=== PATIENT | male | born 2000 ===

== ENCOUNTER 2025-03-24 13:38 | Emergency (ER) | payer SELFPAY ==
--- NOTE | 2025-03-24 14:02 | EDPHYS ---
Physician Documentation [facility] Name: Jax Cohn Age: 25 yrs Sex: Male : 2000 Arrival Date: 03/24/2025 Time: 13:38 Bed 23 Private MD: ED Physician Kaden Shah HPI: 03/24 13:55 This 25 yrs old Black Male presents to ER via Unassigned with complaints of HEARING torri VOICES , SUICIDAL. 13:55 The patient presents to the emergency department with paranoia, suicide ideation. torri Onset: The symptoms/episode began/occurred 3 day(s) ago. Past psychiatric history: Prior diagnosis: depression, schizophrenia, Psychiatric medications include: SEE LIST. Associated signs and symptoms: The patient has no apparent associated signs or symptoms. Severity of symptoms: At their worst the symptoms were moderate in the emergency department the symptoms are unchanged. The patient has experienced similar episodes in the past, multiple times. Historical: - Allergies: 14:30 No Known Allergies; iw - Home Meds: 14:50 nicotine gum 1 piece every hour as needed [Active]; hydroxyzine HCl 25 mg Oral tablet 3 iw times per day [Active]; mirtazapine 15 mg Oral tablet nightly [Active]; amlodipine 10 mg tablet daily [Active]; losartan 25 mg oral tablet daily [Active]; fluticasone propionate 50 mcg/actuation intranasal spray, suspension daily [Active]; naltrexone 50 mg oral tablet twice a day [Active]; qysqselej-hzzemoty-iogdhsr ala 50-200-25 mg oral tablet daily [Active]; famotidine 20 mg Oral tablet 2 times per day [Active]; quetiapine 400 mg oral tablet nightly [Active]; - PMHx: 14:30 HIV positive; Hypertensive disorder; Bipolar disorder; Anxiety; Depressive disorder; iw - Immunization history:: Adult Immunizations up to date. - Infectious Disease History:: Denies. - Family history:: not pertinent. - Social history:: Smoking status: Patient reports the use of cigarette tobacco products, smokes one pack cigarettes per day. ROS: 13:56 Constitutional: Negative for fever, chills, and weight loss, Eyes: Negative for injury, torri pain, redness, and discharge, ENT: Negative for injury, pain, and discharge, Neck: Negative for injury, pain, and swelling, Cardiovascular: Negative for chest pain, palpitations, and edema, Respiratory: Negative for shortness of breath, cough, wheezing, and pleuritic chest pain, Abdomen/GI: Negative for abdominal pain, nausea, vomiting, diarrhea, and constipation, Back: Negative for injury and pain, : Negative for injury, bleeding, discharge, and swelling, MS/Extremity: Negative for injury and deformity, Skin: Negative for injury, rash, and discoloration, Neuro: Negative for headache, weakness, numbness, tingling, and seizure, Allergy/Immunology: Negative for hives, rash, and allergies, Endocrine: Negative for neck swelling, polydipsia, polyuria, polyphagia, and marked weight changes, Hematologic/Lymphatic: Negative for swollen nodes, abnormal bleeding, and unusual bruising, 13:56 MS/extremity: Negative for acute changes, 13:56 Psych: Positive for anxiety, depression, auditory hallucinations, suicidal ideation, Exam: 13:56 Constitutional: This is a well developed, well nourished patient who is awake, alert, torri and in no acute distress. Head/Face: Normocephalic, atraumatic. Eyes: Pupils equal round and reactive to light, extra-ocular motions intact. Lids and lashes normal. Conjunctiva and sclera are non-icteric and not injected. Cornea within normal limits. Periorbital areas with no swelling, redness, or edema. ENT: Nares patent. No nasal discharge, no septal abnormalities noted. Tympanic membranes are normal and external auditory canals are clear. Oropharynx with no redness, swelling, or masses, exudates, or evidence of obstruction, uvula midline. Mucous membranes moist. Neck: Trachea midline, no thyromegaly or masses palpated, and no cervical lymphadenopathy. Supple, full range of motion without nuchal rigidity, or vertebral point tenderness. No Meningismus. Chest/axilla: Normal chest wall appearance and motion. Nontender with no deformity. No lesions are appreciated. Cardiovascular: Regular rate and rhythm with a normal S1 and S2. No gallops, murmurs, or rubs. Normal PMI, no JVD. No pulse deficits. Respiratory: Lungs have equal breath sounds bilaterally, clear to auscultation and percussion. No rales, rhonchi or wheezes noted. No increased work of breathing, no retractions or nasal flaring. Abdomen/GI: Soft, non-tender, with normal bowel sounds. No distension or tympany. No guarding or rebound. No evidence of tenderness throughout. Back: No spinal tenderness. No costovertebral tenderness. Full range of motion. Male : Normal genitalia with no discharge or lesions. Skin: Warm, dry with normal turgor. Normal color with no rashes, no lesions, and no evidence of cellulitis. MS/ Extremity: Pulses equal, no cyanosis. Neurovascular intact. Full, normal range of motion., bilateral aka Neuro: Awake and alert, GCS 15, oriented to person, place, time, and situation. Cranial nerves II-XII grossly intact. Motor strength 5/5 in all extremities. Sensory grossly intact. Cerebellar exam normal. Normal gait. Psych: Awake, alert, with orientation to person, place and time. Behavior, mood, and affect are within normal limits. 13:56 ECG was reviewed by the Attending Physician. 13:56 Musculoskeletal/extremity: DVT Exam: No signs of deep vein thrombosis. no pain, no swelling, no tenderness, negative Homans' sign noted on exam, no appreciated bluish discoloration, no erythema, no increased warmth, 13:56 Neuro: Orientation: appropriate for stated age, no acute changes, to person, place \T\ time. Mentation: appropriate for stated age, no acute changes, responsive to voice lucid, able to follow commands, Memory: immediate memory is intact, remote memory is intact. recent memory is intact, Cranial nerves: grossly normal, is grossly normal based on the patient's age, no acute changes, visual nichols are intact. extraocular movements are intact, Facial palsy and sensory deficits are absent. Motor: Sensation: is normal, Gait: is steady, appropriate for age, Deep tendon reflexes are 2+ (normal) in the bilateral brachioradialis, bicep, tricep and patellar and Achilles tendons, Babinski testing is normal, Vital Signs: 13:38 BP 146 / 79; Pulse 84; Resp 16; Temp 98.1; Pulse Ox 99% on R/A; Weight 79.38 kg; Height iw 5 ft. 11 in. ; Pain 0/10; 19:42 BP 137 / 92; Pulse 80; Resp 17; Pulse Ox 97% on R/A; Weight 97.07 kg; Height 5 ft. 11 tb4 in. ; Pain 0/10; 03/25 12:59 BP 146 / 78; Pulse 92; Resp 16; Pulse Ox 97% ; bc6 19:35 BP 148 / 89; Pulse 83; Resp 16; Pulse Ox 97% ; ts3 20:51 BP 127 / 84; Pulse 84; Resp 16; Pulse Ox 96% ; ts3 21:33 BP 129 / 85; Pulse 74; Resp 16; Pulse Ox 95% ; ts3 03/26 08:11 BP 136 / 91; Pulse 85; Resp 18; Temp 97.4; Pulse Ox 98% on R/A; af3 14:21 BP 130 / 81; Pulse 77; Resp 18; Pulse Ox 100% ; ts3 19:33 BP 134 / 76; Pulse 88; Resp 20; Temp 97.5; Pulse Ox 99% on R/A; Pain 0/10; tb4 03/27 06:26 BP 134 / 73; Pulse 72; Resp 17; Pulse Ox 99% on R/A; Pain 0/10; tb4 09:00 BP 135 / 71; Pulse 70; Resp 16; Temp 97.5(O); Pulse Ox 99% on R/A; jp5 14:00 BP 130 / 68; Pulse 70; Resp 16; Temp 97.8(O); Pulse Ox 99% on R/A; Pain 0/10; jp5 19:30 BP 126 / 86; Pulse 81; Resp 17; Pulse Ox 97% on R/A; Pain 0/10; tb4 03/28 08:15 BP 115 / 82; Pulse 83; Resp 16; Temp 98; Pulse Ox 98% on R/A; iw 13:02 BP 127 / 70; Pulse 83; Resp 16; Temp 98.1; Pulse Ox 100% on R/A; rk3 03/24 19:42 Body Mass Index 29.85 (97.07 kg, 180.34 cm) tb4 03/24 13:38 Pain Scale: Adult iw 19:42 Pain Scale: Adult tb4 19:33 Pain Scale: Adult tb4 03/27 06:26 Pain Scale: Adult tb4 14:00 Pain Scale: Adult jp5 19:30 Pain Scale: Adult tb4 NIH Stroke Scale Scores: 03/24 13:56 NIHSS Score: 0 torri MDM: 13:46 Medical Screening Exam initiated torri 14:57 Differential diagnosis: drug withdrawal. acute psychotic break, depression, psychosis torri secondary to non-compliance. Differential Diagnosis altered mental status, sepsis, flu. Data reviewed: vital signs, nurses notes, lab test result(s), EKG. Consideration of Admission/Observation Escalation of care including admission/observation considered. I considered the following discharge prescriptions or medication management in the emergency department Medications were administered in the Emergency Department. See MAR. Independent interpretation of the following test(s) in the Emergency Department EKG: See my EKG interpretation above. Test considered but Not performed: CT: NO CT BRAIN. Care significantly affected by the following chronic conditions: Hypertension, Obesity, HIV, BIPOLAR, DEPRESSION. 03/24 13:47 Order name: Acetaminophen; Complete Time: 16:02 [facility] 03/24 13:47 Order name: Basic Metabolic Panel; Complete Time: 16:02 torri 03/24 13:47 Order name: CBC with Diff; Complete Time: 16:02 torri 03/24 13:47 Order name: ETOH Level; Complete Time: 16:02 torri 03/24 13:47 Order name: Hepatic Function; Complete Time: 16:02 torri 03/24 13:47 Order name: PT-INR; Complete Time: 16:02 torri 03/24 13:47 Order name: Ptt, Activated; Complete Time: 16:02 [facility] 03/24 13:47 Order name: Salicylate; Complete Time: 20:04 torri 03/24 13:47 Order name: Urine Drug Screen; Complete Time: 16:02 torri 03/24 13:47 Order name: EKG - Nurse/Tech; Complete Time: 14:54 torri 03/24 13:47 Order name: IV Saline Lock; Complete Time: 14:54 [facility] 03/24 13:47 Order name: Labs collected and sent; Complete Time: 14:54 torri 03/24 13:47 Order name: Suicide Screening ([place]); Complete Time: 15:02 torri 03/24 13:47 Order name: Suicide Precautions; Complete Time: 15:03 [facility] Administered Medications: 15:02 Drug: Ativan IVP 2 mg IVP once Route: IVP; Site: left hand; me1 16:40 Follow up: Response: No adverse reaction; Anxiety decreased me1 15:02 Drug: NS 0.9% IV 1000 ml IV at 1000 ml once; to be given as a bolus over 60 minutes me1 Route: IV; Rate: 1000 ml; Site: left hand; 16:41 Follow up: Response: No adverse reaction; IV Status: Completed infusion; IV Intake: me1 1000ml 15:03 Not Given (patient is cooperative at this timee): mg IM once me1 22:11 Drug: SEROquel PO 400 mg PO once Route: PO; tb4 23:39 Follow up: Response: No adverse reaction tb4 22:11 Drug: Diazepam PO 5 mg PO once Route: PO; tb4 23:39 Follow up: Response: No adverse reaction; Anxiety decreased tb4 22:13 Not Given (Patient Refused; Patient states it will give him nightmares so he can only tb4 use it in the day time.): nicotinepatch 21 mg/24 hr 1 patches Transdermal once 03/25 14:55 Drug: Nicotine Transdermal Patch 21 mg/24 hr 1 patches Transdermal once {Note: applied ar8 to Left upper arm.} Route: Transdermal; Site: affected area; 16:48 Follow up: Response: No adverse reaction ar8 19:30 Drug: Promethazine PO 50 mg PO once Route: PO; cp4 20:53 Follow up: Response: No adverse reaction cp4 21:46 Drug: SEROquel PO 400 mg PO once Route: PO; cp4 22:05 Follow up: Response: No adverse reaction cp4 03/27 00:32 Drug: SEROquel PO 400 mg PO once Route: PO; tb4 01:00 Follow up: Response: No adverse reaction; RASS: Drowsy (-1) tb4 03/28 00:26 Drug: SEROquel PO 400 mg PO once Route: PO; vc1 Disposition Summary: 03/24/25 14:02 Transfer Ordered Notes: Transfer Location: Psych Facility torri Reason: Higher level of care torri Condition: Stable torri Problem: new torri Symptoms: have improved torri Accepting Physician: TO PSYCH (03/28/25 13:03) iw Diagnosis - Schizoaffective disorder, unspecified torri - Schizophrenia, unspecified torri - Suicidal ideations torri - Asymptomatic human immunodeficiency virus [HIV] infection status torri Forms: - Medication Reconciliation Form torri - SBAR form torri NIH Stroke Scale - NIH Stroke Score Date: 03/24/2025 Time: 13:56 Total Score = 0 10. Dysarthria (speech clarity - read or repeat words) - 0(Normal) 11. Extinction and Inattention (visual/tactile/auditory/spatial/personal) - 0(No abnormality) 1a. Level of Consciousness (LOC) - 0(Alert) 1b. Level of Consciousness (LOC) (Month \T\ Age) - 0(Both) 1c. LOC Commands (Open \T\ Closes Eyes/Stamp Maker) - 0(Both) 2. Best Gaze (Lateral Gaze Paresis) - 0(Normal) 3. Visual Field Loss - 0(No visual loss) 4. Facial Palsy - 0(Normal) 5a. Left Arm: Motor (10-second hold) - 0(No drift) 5b. Right Arm: Motor (10-second hold) - 0(No drift) 6a. Left Leg: Motor (5-second hold - always test supine) - 0(No drift) 6b. Right Leg: Motor (5-second hold - always test supine) - 0(No drift) 7. Limb Ataxia (finger/nose \T\ heel/stewart - test with eyes open) - 0(Absent) 8. Sensory Loss (pinprick arms/legs/face) - 0(Normal) 9. Best Language: Aphasia (description/naming/reading) - 0(No aphasia) Initials: torri Signatures: Dispatcher [employer] EDMS Griffin West MD MD cha Williams, Irene RN BESSY iw Greer Blackwood RN RN vc1 Kaden Shah MD MD sp4 Lanette Chacon RN RN me1 Jeannie Eduardo cp4 Shae Moncada RN RN tb4 Sarthak Beyer, RN RN ar8 Corrections: (The following items were deleted from the chart) 03/24 13:48 13:48 ACETAMINOPHEN+C.LAB.BRZ ordered. EDMS EDMS 13:48 13:48 BASIC METABOLIC PANEL+C.LAB.BRZ ordered. EDMS EDMS 13:48 13:48 CBC+H.LAB.BRZ ordered. EDMS EDMS 13:48 13:48 ETHANOL+C.LAB.BRZ ordered. EDMS EDMS 13:48 13:48 HEPATIC FUNCTION+C.LAB.BRZ ordered. EDMS EDMS 13:48 13:48 PROTIME (+INR)+COAG.LAB.BRZ ordered. EDMS EDMS 13:48 13:48 PTT, ACTIVATED+COAG.LAB.BRZ ordered. EDMS EDMS 13:48 13:48 SALICYLATE+C.LAB.BRZ ordered. EDMS EDMS 13:48 13:48 URINE DRUG SCREEN+UC.LAB.BRZ ordered. EDMS EDMS 14:59 14:02 TO PSYCH [facility] 03/28 13:03 10 14:59 TO [facility]
[2025-03-24 14:32] LABS: METHAMPHETAM NEGATIVE (NEGATIVE); THC Cannibis NEGATIVE (NEGATIVE)
[2025-03-24] MEDS ORDERED: NA CHLORIDE 0.9% 1,000 ML ONE (15:01)
[2025-03-24] MEDS ORDERED: LORazepam 2 MG/ML VIAL ONE (15:01)
[2025-03-24 15:11] LABS: Absolute Lymphocytes (CBC) 1.0 K/uL (0.7-4.9); Hematocrit 41.3 % (39.6-49.0); Hemoglobin 14.7 g/dL (13.6-17.9); MCH 31.2 pg (27.0-35.0); MCHC 35.7 g/dL (32.0-36.0); MCV 87.4 fL (80-100); MPV 8.0 fL (7.6-11.3); Nucleated RBC Absolute Count 0.0 (0-0); Nucleated Red Blood Cells % 0.4 % (0-0); RBC Red Blood Cell Count 4.72 M/uL (4.33-5.43); White Blood Count 3.00 thou/uL (4.3-10.9)
[2025-03-24 15:14] LABS: PT Prothrombin Time 11.9 SECONDS (10-13.0); PTT, Activated Partial Thromb 34.3 SECONDS (27.2-37.4); Protime INR 1.05
[2025-03-24 15:22] LABS: ALT/SGPT 34 U/L (16-61); Albumin 3.8 g/dL (3.4-5.0); Albumin/Globulin Ratio 0.8 (1.1-1.8); Alkaline Phosphatase 83 U/L (45-117); Anion Gap 10.0 mEq/L (5.0-15.0); BUN Blood Urea Nitrogen 16 mg/dL (7-18); Globulin 4.6 g/dL (2.3-3.5); Glucose Level 84 mg/dL (74-106)
[2025-03-24 15:23] LABS: AST/SGOT 33 U/L (15-37); Bilirubin Indirect, Calculated 0.2 mg/dL (0.2-0.8); Potassium 4.0 mEq/L (3.5-5.1)
[2025-03-24] MEDS ORDERED: NICOTINE 21 MG/PAT TD ONE (20:18)
[2025-03-24] MEDS ORDERED: QUETIAPINE 100MG TAB ONE (20:18)
[2025-03-24] MEDS ORDERED: DIAZEPAM 5 MG TABLET ONE (21:49)
[2025-03-25] MEDS ORDERED: PROMETHAZINE 25 MG TABLET ONE (19:28)
[2025-03-25] MEDS ORDERED: QUETIAPINE 100MG TAB ONE (21:36)
[2025-03-26] MEDS ORDERED: QUETIAPINE 100MG TAB ONE (23:57)
[2025-03-28] MEDS ORDERED: QUETIAPINE 100MG TAB ONE (00:07)
--- NOTE | 2025-03-28 13:04 | ER ---
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 the past month, have you actually had any thoughts of killing yourself?" Patient responds "no." "In your lifetime, have you ever done anything, started to do anything, or prepared to do anything to end your life?" Patient responds "no.". Subjective: Patient's mood is sad, Delusions are denied, Hallucinations are auditory, Having thoughts of suicide. Denies suicidal plan. Objective: Patient is cooperative, Speech is normal, Affect is appropriate. Interventions: Removed personal items and placed in bag. Patient placed in hospital gown. Belonging list filled out. Patient reassessed during use of restraints. Patient is physically safe. Patient's cardiac status is stable. Patient's respirations are even and unlabored. Patient has good circulation in all extremities as indicated by capillary refill < 3 seconds. Patient's ROM assessed and is intact. Patient nutrition and hydration needs will continue to be monitored and addressed. Patient hygiene and elimination needs met. Patient assessed for signs of distress. Patient remains reasonably comfortable at this time. Assisted patient in de-escalation of behavior by removing stimuli causing behavior where possible. Safety Checks: Personal items have been removed. Door is open. No visitors are present at this time. Patient uses methamphetamines. Vital Signs: 03/24 13:38 BP 146 / 79; Pulse 84; Resp 16; Temp 98.1; Pulse Ox 99% on R/A; Weight 79.38 kg; Height iw 5 ft. 11 in. ; Pain 0/10; 19:42 BP 137 / 92; Pulse 80; Resp 17; Pulse Ox 97% on R/A; Weight 97.07 kg; Height 5 ft. 11 tb4 in. ; Pain 0/10; 03/25 12:59 BP 146 / 78; Pulse 92; Resp 16; Pulse Ox 97% ; bc6 19:35 BP 148 / 89; Pulse 83; Resp 16; Pulse Ox 97% ; ts3 20:51 BP 127 / 84; Pulse 84; Resp 16; Pulse Ox 96% ; ts3 21:33 BP 129 / 85; Pulse 74; Resp 16; Pulse Ox 95% ; ts3 03/26 08:11 BP 136 / 91; Pulse 85; Resp 18; Temp 97.4; Pulse Ox 98% on R/A; af3 14:21 BP 130 / 81; Pulse 77; Resp 18; Pulse Ox 100% ; ts3 19:33 BP 134 / 76; Pulse 88; Resp 20; Temp 97.5; Pulse Ox 99% on R/A; Pain 0/10; tb4 03/27 06:26 BP 134 / 73; Pulse 72; Resp 17; Pulse Ox 99% on R/A; Pain 0/10; tb4 09:00 BP 135 / 71; Pulse 70; Resp 16; Temp 97.5(O); Pulse Ox 99% on R/A; jp5 14:00 BP 130 / 68; Pulse 70; Resp 16; Temp 97.8(O); Pulse Ox 99% on R/A; Pain 0/10; jp5 19:30 BP 126 / 86; Pulse 81; Resp 17; Pulse Ox 97% on R/A; Pain 0/10; tb4 03/28 08:15 BP 115 / 82; Pulse 83; Resp 16; Temp 98; Pulse Ox 98% on R/A; iw 13:02 BP 127 / 70; Pulse 83; Resp 16; Temp 98.1; Pulse Ox 100% on R/A; rk3 03/24 19:42 Body Mass Index 29.85 (97.07 kg, 180.34 cm) tb4 03/24 13:38 Pain Scale: Adult iw 19:42 Pain Scale: Adult tb4 19:33 Pain Scale: Adult tb4 03/27 06:26 Pain Scale: Adult tb4 14:00 Pain Scale: Adult jp5 19:30 Pain Scale: Adult tb4 NIH Stroke Scale Scores: 03/24 13:56 NIHSS Score: 0 torri ED Course: 13:38 Arm band placed on. iw 13:39 Patient arrived in ED. eb 13:46 Griffin West MD is Attending Physician. [facility] 14:10 Patient has correct armband on for positive identification. Bed in low position. Call ny1 light in reach. Side rails up X 1. Provided Education on: POC. Verbalized understanding.. Warm blanket given. 14:10 No provider procedures requiring assistance completed. ny1 14:11 Lanette Chacon, RN is Primary Nurse. ny1 14:30 Triage completed. iw 14:54 Acetaminophen Sent. em1 14:54 Basic Metabolic Panel Sent. em1 14:54 CBC with Diff Sent. em1 14:54 ETOH Level Sent. em1 14:54 Hepatic Function Sent. em1 14:54 PT-INR Sent. em1 14:54 Ptt, Activated Sent. em1 14:54 Salicylate Sent. em1 14:55 Initial lab(s) drawn, by me, sent to lab. EKG done, by ED staff, reviewed by Griffin West MD. Inserted saline lock: 20 gauge in left hand, using aseptic technique. Blood collected. Flushed with 10 mL NS. 15:45 faxed patient clinical information to [facility] at the patient's request. eb 15:[address] [facility] Crisis line / Griffin with dispatch the screener home restoration service cleaner. eb 17:06 [facility] screener here to screen the patient. eb 17:45 faxed patient clinical information to the following facilities in attempt to find eb placement/ [facility] , [facility], and [facility] [place], [place]. 18:25 Lanette from [facility] [place] [place] called/ they will have to decline the patient has this eb time/ they do not have any beds. 20:03 Attending Physician role handed off by Griffin West MD sp4 20:03 Kaden Shah MD is Attending Physician. sp4 20:27 Sitter at bedside. tb4 10 09:00 pt denied at [facility]. bd 09:40 faxed chart with exclusionary to [facility]. bd 11:39 re faxed chart to [facility], [facility] and [facility]. 12:04 confirmed with [facility] that chart has been received and is being reviewed. bd 15:50 spoke with Giancarlo at [facility] pt is approved but a bed is still pending. bd 17:11 Diet: Patient given a regular meal tray. ar8 03/26 09:55 spoke with Tia at [facility],pt still pending a bed. bd 13:42 spoke again with Tia at [facility] pt is still pending a bed. bd 03/27 11:55 spoke with Pat at [facility] bed still pending, and unsure when discharges will happen. bd 19:00 Report given to material handler 1st shift RN. jp5 03/28 09:49 PAT with [facility] informed me still waiting on bed placement. bc6 12:17 acceptance received with Jeannie landers see dr Brenton Zaragoza at [facility]. bc6 12:45 Gisela with [facility] accepted transfer. bc6 13:01 Radha Mays, RN is Primary Nurse. iw 13:01 Patient did not have IV access during this emergency room visit. iw Administered Medications: 03/24 15:02 Drug: Ativan IVP 2 mg IVP once Route: IVP; Site: left hand; me1 16:40 Follow up: Response: No adverse reaction; Anxiety decreased me1 15:02 Drug: NS 0.9% IV 1000 ml IV at 1000 ml once; to be given as a bolus over 60 minutes me1 Route: IV; Rate: 1000 ml; Site: left hand; 16:41 Follow up: Response: No adverse reaction; IV Status: Completed infusion; IV Intake: me1 1000ml 15:03 Not Given (patient is cooperative at this timee): [id number] mg IM once me1 22:11 Drug: SEROquel PO 400 mg PO once Route: PO; tb4 23:39 Follow up: Response: No adverse reaction tb4 22:11 Drug: Diazepam PO 5 mg PO once Route: PO; tb4 23:39 Follow up: Response: No adverse reaction; Anxiety decreased tb4 22:13 Not Given (Patient Refused; Patient states it will give him nightmares so he can only tb4 use it in the day time.): nicotinepatch 21 mg/24 hr 1 patches Transdermal once 03/25 14:55 Drug: Nicotine Transdermal Patch 21 mg/24 hr 1 patches Transdermal once {Note: applied ar8 to Left upper arm.} Route: Transdermal; Site: affected area; 16:48 Follow up: Response: No adverse reaction ar8 19:30 Drug: Promethazine PO 50 mg PO once Route: PO; cp4 20:53 Follow up: Response: No adverse reaction cp4 21:46 Drug: SEROquel PO 400 mg PO once Route: PO; cp4 22:05 Follow up: Response: No adverse reaction cp4 03/27 00:32 Drug: SEROquel PO 400 mg PO once Route: PO; tb4 01:00 Follow up: Response: No adverse reaction; RASS: Drowsy (-1) tb4 03/28 00:26 Drug: SEROquel PO 400 mg PO once Route: PO; vc1 Medication: 03/24 14:10 VIS not applicable for this client. me1 Intake: 16:41 IV: 1000ml; Total: 1000ml. me1 Outcome: 14:02 ER care complete, transfer ordered by MD. wild 03/28 13:01 Discharged to Rehab Facility iw Condition: stable Discharge instructions given to patient, Instructed on the need for transfer, 13:03 Patient left the ED. iw NIH Stroke Scale - NIH Stroke Score Date: 03/24/2025 Time: 13:56 Total Score = 0 10. Dysarthria (speech clarity - read or repeat words) - 0(Normal) 11. Extinction and Inattention (visual/tactile/auditory/spatial/personal) - 0(No abnormality) 1a. Level of Consciousness (LOC) - 0(Alert) 1b. Level of Consciousness (LOC) (Month \\T\\ Age) - 0(Both) 1c. LOC Commands (Open \\T\\ Closes Eyes/Cap Sizer) - 0(Both) 2. Best Gaze (Lateral Gaze Paresis) - 0(Normal) 3. Visual Field Loss - 0(No visual loss) 4. Facial Palsy - 0(Normal) 5a. Left Arm: Motor (10-second hold) - 0(No drift) 5b. Right Arm: Motor (10-second hold) - 0(No drift) 6a. Left Leg: Motor (5-second hold - always test supine) - 0(No drift) 6b. Right Leg: Motor (5-second hold - always test supine) - 0(No drift) 7. Limb Ataxia (finger/nose \\T\\ heel/stewart - test with eyes open) - 0(Absent) 8. Sensory Loss (pinprick arms/legs/face) - 0(Normal) 9. Best Language: Aphasia (description/naming/reading) - 0(No aphasia) Initials: torri Signatures: Lilian Telles Corey, MD MD cha Williams, Irene RN BESSY iw [place] [facility] em1 Olayinka Landis RN BESSY bp Nadeen Sue Vanessa RN RN vc1 Vivian Coffey6 Kaden Shah MD MD sp4 Lanette Chacon RN RN me1 Jeannie Eduardo cp4 Monica Lopez RN RN jp5 Nereida Bush RN RN af3 Supa Lan rk3 Shae Moncada RN RN tb4 Angeles Cam ts3 Sarthak Beyer, RN RN ar8 Corrections: (The following items were deleted from the chart) 03/24 14:31 13:38 Chief complaint: Patient states: suicidal ideation with plan to walk out iw into traffic, hx of bipolar, schizophrenia, 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
[2025-03-28 13:50] VITALS: BP 127/70; TEMP 98.1; O2SAT 100
== END 2025-03-28 13:03 ==
LOC: ER 13:38
DX: R45.851 Suicidal ideations (principal); F25.9 Schizoaffective disorder, unspecified; Z21 Asymptomatic human immunodeficiency virus [HIV] infection status
CPT/HCPCS: 36415; 80048; 80076; 80143; 80179; 80307; 82077; 85025; 85610; 85730; 93005; 96361; 96374; 99285; J7030